=== PATIENT | male | born 1975 | race Caucasian/White ===

== ENCOUNTER 2018-08-19 20:30 | Emergency (ER) | payer BC ==
[2018-08-19 21:52] LABS: Bilirubin Negative (Negative); Blood, Urine Negative (Negative); Clarity CLEAR (Clear); Glucose, Urine (Dipstick) Negative (Negative); Leukocyte Negative (Negative); Nitrite Negative (Negative); Protein, Urine (Dipstick) Negative (Neg-Trace); Specific Gravity, Urine 1.011 (1.002-1.036)
[2018-08-19 21:53] LABS: #Basophils 0.1 thou/uL (0.0-0.2); #Eosinphils 0.1 thou/uL (0.0-0.7); #Lymphocytes 3.4 thou/uL (1.20-3.40); #Monocytes 0.7 thou/uL (0.11-0.59); #Neutrophils 2.7 thou/uL (1.40-6.50); %Basophils 1.2 % (0.0-1.0); %Eosinophils 1.5 % (0.0-10.0); %Lymphocytes 48.6 % (21.0-51.0); %Monocytes 9.7 % (0.0-10.0); %Neutrophils 39.2 % (42.0-75.0); Hemoglobin 15.2 g/dL (14.0-18.0); Mean Corpuscular Hemoglobin 30.1 pg (27.0-31.0); Mean Corpuscular Volume 88.5 fL (78.0-98.0); Mean Platelet Volume 7.7 fL (7.4-10.4); Platelet Count 234 thou/uL (130-400); Red Blood Cell (RBC) Count 5.05 mill/uL (4.70-6.10); White Blood Cell (WBC) Count 6.9 thou/uL (4.8-10.8)
[2018-08-19 22:13] LABS: ALT (SGPT) 34 U/L (8-55); AST (SGOT) 23 U/L (5-34); Albumin 4.4 g/dL (3.5-5.0); Alkaline Phosphatase 81 U/L (40-150); Anion Gap 14 mmol/L (10-20); BUN (Urea Nitrogen) 14 mg/dL (8.9-20.6); Bilirubin, Total 0.3 mg/dL (0.2-1.2); Calc. Creatinine Clearance 0 mL/min (70-130); Calcium 9.8 mg/dL (7.8-10.44); Carbon Dioxide 27 mmol/L (22-29); Chloride 103 mmol/L (98-107); Estimated GFR-MDRD 80; Globulin 2.8 g/dL (2.4-3.5); Glucose 97 mg/dL (70-105); Potassium 3.8 mmol/L (3.5-5.1); Protein, Total 7.2 g/dL (6.0-8.3); Sodium 140 mmol/L (136-145)
[2018-08-19] MEDS ORDERED: Lidocaine 1% PF 5 ML VIAL ONE (22:41)
[2018-08-19] MEDS ORDERED: Azithromycin 250 MG TAB ONE (22:41)
[2018-08-19] MEDS ORDERED: Ibuprofen 800 MG TAB ONE (22:41)
[2018-08-19] MEDS ORDERED: cefTRIAXone\\ROCEPHIN 250 MG VIAL ONE (22:41)
--- NOTE | 2018-08-19 22:53 | ULT ---
TESTICULAR ULTRASOUND: 08/19/18 HISTORY: Left testicular pain times three days. Real time evaluation of the right and left testes were performed. Right testicle measures 4.3 and the left 4.4 cm in size. No testicular mass. There are small bilateral hydroceles present. The right epi didymal region appears unremarkable. On the left side, in the region of the epididymal tail is a slightly oblong shaped circumscribed 8 x 17 mm mass. It does appear to be extratesticular in appearance. This does correspond to the area of patient's pain. DOPPLER EVALUATION WITH SPECTRAL ANALYSIS: Normal flow is shown to the testes. The left epididymal mass does not show any significant increased flow. IMPRESSION: Mass involving the left epididymal tail. This could represent a focal epididymitis, although somewhat more mass-like that typically seen. other entity such as an adenomatoid tumor of the scrotum which i s the most common benign lesion of the epididymis would be another possibility. An epididymal granulo ma is also a possibility seen more commonly after vasectomy. Nother possibility would be that this pr esents a torsion of the epididymal appendix. POS: ANGEL
[2018-08-20 21:43] LABS: Chlamydia by PCR Not Detected (NotDetected); GC by PCR Not Detected (NotDetected)
== END 2018-08-19 23:15 | disposition home or self-care (01) ==
LOC: ERS 20:30
DX: N50.9 Disorder of male genital organs, unspecified (principal); I10 Essential (primary) hypertension
CPT/HCPCS: 36415; 76870; 80053; 81003; 85025; 87491; 87591; 93976; 96372; J0696; J2001